=== PATIENT | female | born 1985 | race Caucasian/White ===

== ENCOUNTER 2016-12-24 22:34 | Day surgery (SDC) | payer OTHER ==
[~2016-12-24] VITALS: Ht 163.8 cm; Wt 68.8 kg
[~2016-12-24 22:34] MED LIST: ALBUTEROL SULF8.5 GM IH; Colace PO; Dilaudid PO; HYDROCODON-ACE1 EAC7 PO; HYDROMORPHONE HC4 MG PO; IBUPROFEN800 MG PO; Methadone PO; Motrin PO; NAPROSYN500 MG PO; Natalcare Rx,Pramile PO; PERCOCET 5/31 TABLET PO; Percocet 5/325,Endoc PO; TAMIFLU75 MG PO; ZITHROMAX Z-PA250 MG PO
[2016-12-25 01:01] LABS: HEMATOCRIT 43.7 % (36.0-46.0); MCH 31.3 PG (29.0-34.0); MCHC 33.6 G/DL (30.0-36.0); MCV 93.2 FL (83-99); MEAN PLAT.VOLUME 10.8 uM^3 (9.5-12.4); PLATELET COUNT 202 K/uL (156-360); RBC DIS.WIDTH-CV 13.2 % (11.8-14.6); RBC DIS.WIDTH-SD 45.3 % (39-53); RED BLOOD COUNT 4.69 M/uL (3.80-5.20); WHITE BLOOD COUNT 9.3 K/uL (4.1-10.2)
[2016-12-25] MEDS ORDERED: TYLENOL EXTRA500 MG PO (01:06)
[2016-12-25 01:17] LABS: CHLORIDE 110 mEq/L (99-109); SODIUM 142 mEq/L (136-147)
[2016-12-25 01:20] LABS: GLUCOSE 79 mg/dL (70-99)
[2016-12-25 01:21] LABS: ANION GAP 11 MEQ/L (2-14)
[2016-12-25 01:22] LABS: TOTAL BILIRUBIN 0.3 mg/dL (0.0-1.0)
[2016-12-25 01:23] LABS: ALKALINE PHOSPHATASE 48 IU/L (3-129); GFR ESTIMATE (CALCULATED) > 59 mL/min/
[2016-12-25 01:24] LABS: UREA NITROGEN (BUN) 10 mg/dL (9-23)
[2016-12-25 04:14] VITALS: BP 120/72
[2016-12-25 04:51] VITALS: BP 120/72
[2016-12-25 08:33] VITALS: BP 136/84
[2016-12-25] MEDS ORDERED: HYDROCODON-ACE1 EAC7 PO (09:10)
== END 2016-12-25 10:37 | disposition home or self-care (01) ==
LOC: EME 22:34 → SDC 12-25 01:44 → EME 12-25 01:44 → 2SOUTH 12-25 02:29 → 3EAST 12-25 03:58
PROVIDERS: Physician Assistant
PROC: 0PSQ34Z Reposition Left Metacarpal with Internal Fixation Device, Percutaneous Approach (ICD-10-PCS; principal; 2016-12-25)
DX: S62.327B Displaced fracture of shaft of fifth metacarpal bone, left hand, initial encounter for open fracture (principal); W22.09XA Striking against other stationary object, initial encounter; F17.200 Nicotine dependence, unspecified, uncomplicated
CPT/HCPCS: 73130; 76000; 80053; 85027; 99281; 99285; G0378; J1170; J2250; J2405; J3010